=== PATIENT | female | born 1995 ===

== ENCOUNTER 2021-07-19 08:04 | Outpatient (CLI) | payer OTHER | END 2021-07-19 09:25 | disposition home or self-care (01) | LOC: PRENATAL 08:04 | PROVIDERS: ATTEND Obstetrics & Gynecology Maternal & Fetal Medicine | DX: O36.80X0 Pregnancy with inconclusive fetal viability, not applicable or unspecified (principal); O30.90 Multiple gestation, unspecified, unspecified trimester; O99.891 Other specified diseases and conditions complicating pregnancy; Z3A.14 14 weeks gestation of pregnancy; O26.849 Uterine size-date discrepancy, unspecified trimester ==

== ENCOUNTER 2021-08-29 07:54 | Outpatient (CLI) | payer OTHER | END 2021-08-29 10:20 | disposition home or self-care (01) | LOC: PRENATAL 07:54 | PROVIDERS: ATTEND Obstetrics & Gynecology Maternal & Fetal Medicine | DX: O35.0XX0 Maternal care for (suspected) central nervous system malformation in fetus, not applicable or unspecified (principal); O35.3XX0 Maternal care for (suspected) damage to fetus from viral disease in mother, not applicable or unspecified; O30.90 Multiple gestation, unspecified, unspecified trimester; O99.280 Endocrine, nutritional and metabolic diseases complicating pregnancy, unspecified trimester; Z3A.20 20 weeks gestation of pregnancy ==

== ENCOUNTER 2021-10-23 08:00 | Outpatient (CLI) | payer OTHER | END 2021-10-23 09:15 | disposition home or self-care (01) | LOC: PRENATAL 08:00 | PROVIDERS: ATTEND Obstetrics & Gynecology Maternal & Fetal Medicine | DX: O26.849 Uterine size-date discrepancy, unspecified trimester (principal); O30.90 Multiple gestation, unspecified, unspecified trimester; O99.280 Endocrine, nutritional and metabolic diseases complicating pregnancy, unspecified trimester ==